=== PATIENT | male | born 1995 | race African-American/Black ===

== ENCOUNTER 2020-09-19 06:25 | Emergency (ER) | payer BC, OTHER ==
[~2020-09-19 06:25] MED LIST: ALBU90OI INH; AMOCLA400S PO; AMOX500 PO; BENTYL10 MG PO; CEPH250A PO; CODACEE120 PO; DIPH12.5EL PO; FLUT110OIA; GUAI120S1 PO; HYDACE5 PO; IBUP600 PO; MONT5TCH; Nasonex17 GM; Norco 5-325 Ta1 EACH PO; PERM5TC TOP; RXCODACESY PO; SULTRISS PO; Sudogest30 MG PO; Tamiflu75 MG PO; Ultram50 MG PO; Zithromax250 MG PO; Zofran Odt4 MG SL; Zofran Odt8 MG SL; [UNRECOGNIZED DRUG - REMARK]
[2020-09-19] MEDS ORDERED: AMOCLA875 PO (08:45)
== END 2020-09-19 09:22 | disposition home or self-care (01) ==
LOC: ER 06:25
DX: J03.90 Acute tonsillitis, unspecified (principal)
CPT/HCPCS: 96365; 96375; 99282-25; A9270; J0295; J1100; J1885; J7120

== ENCOUNTER 2021-07-11 21:54 | Emergency (ER) | payer BC, OTHER ==
[~2021-07-11] VITALS: Ht 167.6 cm; Wt 71.2 kg
[~2021-07-11 21:54] MED LIST changes: +AMOCLA875 PO
[2021-07-11 23:42] LABS: Influenza A Negative (NEGATIVE); Influenza B Negative (NEGATIVE)
== END 2021-07-12 00:01 | disposition home or self-care (01) ==
LOC: ER 21:54
PROVIDERS: Emergency Medicine
DX: B34.9 Viral infection, unspecified (principal)
CPT/HCPCS: 87804; 99283

== ENCOUNTER 2022-10-23 18:53 | Emergency (ER) | payer OTHER ==
[~2022-10-23] VITALS: Ht 170.2 cm; Wt 69.4 kg
[2022-10-23 19:08] VITALS: BP 138/81
[2022-10-23 20:01] LABS: Influenza A, PCR NEGATIVE (NEGATIVE); Influenza B, PCR NEGATIVE (NEGATIVE); Resp Syncytial Virus, PCR NEGATIVE (NEGATIVE); SARS-Cov-2 (COVID-19) PCR, MMC NEGATIVE (NEGATIVE)
== END 2022-10-23 20:49 | disposition home or self-care (01) ==
LOC: ER 18:53
PROVIDERS: Emergency Medicine
DX: B34.9 Viral infection, unspecified (principal); Z20.822 Contact with and (suspected) exposure to COVID-19
CPT/HCPCS: 0241U; 71046; 93005; 93010; 99284-25; A9270

== ENCOUNTER 2023-03-25 14:36 | Emergency (ER) | payer OTHER ==
[~2023-03-25] VITALS: Ht 167.6 cm; Wt 69.4 kg
[2023-03-25 14:49] VITALS: BP 139/95
[2023-03-25] MEDS ORDERED: Monodox100 MG PO (15:04)
[2023-03-28 06:26] LABS: APTIMA MEDIA TYPE Unisex Swab; C. TRACHOMATIS BY TMA Negative (Negative); N. GONORRHOEAE BY TMA Negative (Negative)
== END 2023-03-25 15:06 | disposition home or self-care (01) ==
LOC: ER 14:36
PROVIDERS: Physician Assistant
DX: K13.79 Other lesions of oral mucosa (principal); F17.290 Nicotine dependence, other tobacco product, uncomplicated; Z20.2 Contact with and (suspected) exposure to infections with a predominantly sexual mode of transmission
CPT/HCPCS: 87491; 87591; 99282

== ENCOUNTER 2024-05-11 18:55 | Emergency (ER) | payer OTHER ==
[~2024-05-11] VITALS: Ht 170.2 cm; Wt 70.3 kg
[~2024-05-11 18:55] MED LIST changes: +AMOX875 PO; +Amoxicillin875 MG PO; +HYDR1TAB94 PO; +Monodox100 MG PO
[2024-05-11 19:24] VITALS: BP 133/84
[2024-05-11] MEDS ORDERED: RX Prepack 6 Tabs Oxycodone 5mg UD ONE (21:35)
== END 2024-05-11 21:38 | disposition home or self-care (01) ==
LOC: ER 18:55
DX: S02.5XXA Fracture of tooth (traumatic), initial encounter for closed fracture (principal); X58.XXXA Exposure to other specified factors, initial encounter
CPT/HCPCS: 64400; 99282-25; A9270